=== PATIENT | male | born 1960 | race Caucasian/White ===

== ENCOUNTER 2024-04-26 11:22 | Emergency (ER) | payer OTHER ==
[~2024-04-26] VITALS: Ht 188 cm; Wt 99.1 kg
[2024-04-26] MEDS ORDERED: METF500T13 PO (11:35)
[2024-04-26 12:12] LABS: HEMATOCRIT 45.1 % (42.0-52.0); HEMOGLOBIN 15.7 g/dl (13.5-17.5); MEAN CORPUSCULAR HEMOGLOBIN 31.7 pg (27.0-33.0); MEAN CORPUSCULAR HGB CONC 34.8 g/dl (32.0-36.5); MEAN CORPUSCULAR VOLUME 91.1 fl (80.0-96.0); PLATELET COUNT, AUTOMATED 273 10^3/uL (150-450); RED BLOOD COUNT 4.95 10^6/uL (4.30-6.10); WHITE BLOOD COUNT 7.7 10^3/uL (4.0-10.0)
[2024-04-26 12:43] LABS: BILIRUBIN,DIRECT 0.1 MG/DL (<0.4); BILIRUBIN,TOTAL 0.7 MG/DL (0.3-1.2); TOTAL PROTEIN 7.3 G/DL (5.7-8.2)
[2024-04-26 13:30] VITALS: BP 132/78; TEMP 97.3; O2SAT 98
[2024-04-26] MEDS: IBUPROFEN 600MG TAB PO ONE (13:42)
== END 2024-04-26 13:51 | disposition home or self-care (01) ==
LOC: M ED 11:22 → EDBD 11:22 → M ED 13:51
DX: S20.214A Contusion of middle front wall of thorax, initial encounter (principal); Y92.9 Unspecified place or not applicable; Y93.9 Activity, unspecified; Y99.9 Unspecified external cause status; V49.49XA Driver injured in collision with other motor vehicles in traffic accident, initial encounter; R00.1 Bradycardia, unspecified; E11.9 Type 2 diabetes mellitus without complications; F10.10 Alcohol abuse, uncomplicated; Z91.041 Radiographic dye allergy status; Z79.84 Long term (current) use of oral hypoglycemic drugs